=== PATIENT | male | born 1970 | race Caucasian/White ===

== ENCOUNTER 2019-05-15 03:17 | Emergency (ER) | payer OTHER ==
[~2019-05-15] VITALS: Ht 180.3 cm; Wt 99.8 kg
[~2019-05-15 03:17] MED LIST: CEPH500 PO; HYDACE5 PO; POTCHL20ER PO; SULTRIDS PO
[2019-06-15] MEDS ORDERED: TYLENOL (09:52)
== END 2019-05-15 04:40 | disposition home or self-care (01) ==
LOC: ER 03:17
DX: S40.022A Contusion of left upper arm, initial encounter (principal); Z79.899 Other long term (current) drug therapy; W11.XXXA Fall on and from ladder, initial encounter
CPT/HCPCS: 73030; 73060; 96372; 99283-25; J3010

== ENCOUNTER 2019-06-20 10:28 | Day surgery (SDC) | payer OTHER ==
[~2019-06-20] VITALS: Ht 177.8 cm; Wt 101.6 kg
[~2019-06-20 10:28] MED LIST changes: +TYLENOL
--- NOTE | 2019-06-20 11:07 | NUR ---
Ambulatory in Day Surgery History, Chart, Medications and Allergies reviewed before start of procedure.Lungs clear T/O to Auscultation. Patient reports completing Chlorhexadine shower X2 prior to admission to hospital.Surgical site prepped with 2% Chlorhexidine cloth wipe. Patient States Post-Procedure ride home has been arranged.
--- NOTE | 2019-06-20 11:40 | NUR ---
16 CC BLOOD DRAWN AND MIXED WITH ANTICOAGULANT PER PRP PROTOCOL-SENT TO [facility].
--- NOTE | 2019-06-20 16:04 | NUR ---
INTO STEP VIA [facility].LEFT ARM IN TOY WRAP AND SLING. CAP REFILL LESS THAN 2 SECONDS. PT REPORTS 6/10 LEFT ARM PAIN.DENIES NAUSEA-WILL INITIATE SREEDHAR.
--- NOTE | 2019-06-20 17:01 | NUR ---
Patient up to Ambulate independently. Gait steady. Discharge instructions reviewed with patient. PATIENT QUESTIONED ABOUT THE USE OF MARIJUANA POST OP. I STATED WE DO NOT ENCOURAGE THE USE OF RECREATION DRUGS IN GENERAL AND TO SPEAK WITH SURGEON FOR FURTHER QUESTIONS. Patient verbalizes understanding. Copy given to patient to take home. Discharged via wheelchair to private car for ride home.
== END 2019-06-20 17:00 | disposition home or self-care (01) ==
LOC: ORSCMMR 10:28 → ORD 12:30 → ORSCMMR 17:00
PROVIDERS: Orthopaedic Surgery
PROC: 0LU Tendons, Supplement (ICD-10-PCS; principal; 2019-06-20 12:30)
DX: S46.202A Unspecified injury of muscle, fascia and tendon of other parts of biceps, left arm, initial encounter (principal); F17.210 Nicotine dependence, cigarettes, uncomplicated
CPT/HCPCS: A9270-GY; C1713; C1762; J0690; J1100; J1885; J2250; J2270; J2405; J2704; J3010; J7120

== ENCOUNTER 2020-07-25 10:43 | Emergency (ER) | payer OTHER ==
[~2020-07-25] VITALS: Ht 180.3 cm; Wt 95.2 kg
[2020-07-25 11:21] LABS: Hematocrit 54.2 % (37.0-53.0); Hemoglobin 18.2 g/dL (13.5-17.5); Mean Corpuscular HGB Conc 33.6 g/dL (31.5-36.5); Mean Corpuscular Volume 86 fL (80-100); Mean Platelet Volume 9.3 fL (9.1-12.4); Platelet Count 279 K/mm3 (150-400); RDW Coefficient Variation 12.8 % (11.7-14.2); RDW Standard Deviation 39.8 fL (35.1-46.3); Red Blood Cell Count 6.28 M/mm3 (4.30-5.90); White Blood Cell Count 13.26 K/mm3 (4.00-11.30)
[2020-07-25 11:33] LABS: Alanine Aminotransfer (ALT/SGP 54 U/L (12-78); Albumin, Blood 3.3 g/dL (3.4-5.0); Albumin/Globulin Ratio 0.7 (0.8-1.8); Alk Phos 88 U/L (50-136); Anion Gap 7 mmol/L (6-16); Aspartate Aminotrans (AST/SGOT 26 U/L (12-37); Bilirubin, Total 0.4 mg/dL (0.1-1.0); Blood Urea Nitrogen 15 mg/dL (8-24); CO2, Blood 20 mmol/L (21-32); Chloride, Blood 112 mmol/L (98-108); Creatinine, Blood 0.79 mg/dL (0.60-1.20); Globulin, Blood 4.5 g/dL (2.2-4.0); Glomerular Filtration Rate >60 (60-); Glucose, Blood 106 mg/dL (70-99); Potassium, Blood 3.8 mmol/L (3.5-5.5); Sodium, Blood 139 mmol/L (136-145); Total Protein, Blood 7.8 g/dL (6.4-8.2)
[2020-07-25 11:45] LABS: BAND PERCENT MAN 13 % (0-8); BASOPHILS PERCENT MAN 0 % (0-2); EOSINOPHILS ABSOLUTE MAN 0.92 K/mm3 (0.00-0.68); EOSINOPHILS PERCENT MAN 7 % (0-6); LYMPHOCYTES ABSOLUTE MAN 2.65 K/mm3 (0.84-5.20); LYMPHOCYTES PERCENT MAN 20 % (21-46); MONOCYTES ABSOLUTE MAN 1.85 K/mm3 (0.16-1.47); MONOCYTES PERCENT MAN 14 % (4-13); NEUTROPHILS ABSOLUTE MAN 7.82 K/mm3 (1.96-9.15); SEG NEUTROPHILS PERCENT MAN 46 % (41-73); TOTAL CELLS COUNTED 100
== END 2020-07-25 11:55 | disposition left against medical advice (07) ==
LOC: ER 10:43
PROVIDERS: Emergency Medicine
DX: R11.2 Nausea with vomiting, unspecified (principal); R19.7 Diarrhea, unspecified; Z53.21 Procedure and treatment not carried out due to patient leaving prior to being seen by health care provider
CPT/HCPCS: 36415; 80053; 83690; 85025